=== PATIENT | female | born 1995 | race Caucasian/White ===

== ENCOUNTER 2019-01-09 11:33 | Inpatient (IN) | payer BC, OTHER ==
[~2019-01-09] VITALS: Ht 152.4 cm; Wt 95.8 kg
[2019-01-09] MEDS ORDERED: LACTATED RINGERS 1,000 ML IV ONE (11:43)
[2019-01-09] MEDS ORDERED: IBUPROFEN 800 MG (MOTRIN) TAB PO STA (11:43)
[2019-01-09 11:54] LABS: BASOPHILS % (AUTO) 0 % (0-10); EOSINOPHILS % (AUTO) 0 % (0-10); HEMATOCRIT 31 % (35-52); HEMOGLOBIN 9.8 G/DL (11.5-16.0); LYMPHOCYTES # (AUTO) 1.2 X 10^3 (1.0-4.0); LYMPHOCYTES % (AUTO) 8 % (12-44); MEAN CORPUSCULAR HEMOGLOBIN 24 PG (25-34); MEAN CORPUSCULAR HGB CONC 32 G/DL (32-36); MEAN CORPUSCULAR VOLUME 77 FL (80-99); MONOCYTES # (AUTO) 1.6 X 10^3 (0.0-1.0); MONOCYTES % (AUTO) 10 % (0-12); NEUTROPHILS # (AUTO) 13.7 X 10^3 (1.8-7.8); NEUTROPHILS % (AUTO) 83 % (42-75); PLATELET COUNT 262 10^3/uL (130-400); RED CELL DISTRIBUTION WIDTH 15.5 % (10.0-14.5); WHITE BLOOD COUNT 16.5 10^3/uL (4.3-11.0)
--- NOTE | 2019-01-09 12:00 | ED Integumentary General ---
General Chief Complaint: Skin/Wound Problems Stated Complaint: HIGH FEVER Nursing Triage Note: PT HAS A CSECTION LACERATION AND WHEN SHE WENT TO GEOSCIENCE TECHNICIAN A CHILD AND STOOD UP SHE HAD A GUSH OF FLUID FROM THE INCESION SITE. PT HAS BEEN ON ANTIBIOTICS SINCE WEDNESDAY FOR THE INFECTED INCISION. PT IS FEBRILE AND TACHYCARDIA. PT HAD CSECTION 12/31 History of Present Illness Date Seen by Provider: Jan 09, 2019 Time Seen by Provider: 11:40 Initial Comments 23 year old female delivered her first child on 01/01/19 at [place] via c- section. She had wound issues on 01/06 and was seen at [place] ED, started on Keflex. She took Keflex at 0800, Tylenol 1,000 mg at 0900 and [place]/APAP at 0600 this am. She is on labetalol for hypertension, she did not take that today. She got up from her couch today and noticed a large amount of malodorous fluid from her . She attempted to get in with her OB doctor and could not be seen until tomorrow. She complains of mild nausea, no vomiting. She last ate at 2100 yesterday. She denies any shortness of breath, vision changes, vertigo, or chest pain. She does report right calf pain. No history of DVTs. She is not on aspirin. She arrives via EMS Timing/Duration: this morning Severity: moderate Location: torso (lower abdomen) Possible Cause: no cause identified Associated Symptoms: change in skin texture, malaise, other (drainage incision) Allergies and Home Medications Allergies Coded Allergies: Penicillins (Verified Allergy, Unknown, 01/09/19) acetaminophen (Verified Allergy, Unknown, 01/09/19) butalbital (Verified Allergy, Unknown, 01/09/19) caffeine (Verified Allergy, Unknown, 01/09/19) Home Medications Cephalexin 500 Mg Capsule, 500 MG PO TID, (Reported) PICKED UP A 10 DAY SUPPLY ON 01-07-2019 Hydrocodone/Acetaminophen 1 Each Tablet, 1 TAB PO Q4H PRN for PAIN-MODERATE, (Reported) Labetalol HCl 100 Mg Tablet, 100 MG PO BID, (Reported) Patient Home Medication List Home Medication List Reviewed: Yes Review of Systems Review of Systems Constitutional: no symptoms reported, see HPI Skin: see HPI, change in color (lower abdomen) All Other Systems Reviewed Negative Unless Noted: Yes Past Kscbqyl-Gvmqdw-Pwhigf Hx Past Med/Social Hx: Reviewed Nursing Past Med/Soc Hx Patient Social History Alcohol Use: Denies Use Recreational Drug Use: No Smoking Status: Never a Smoker Recent Foreign Travel: No Contact w/Someone Who Travel: No Recent Infectious Disease Expo: No Recent Hopitalizations: Yes (baby) Physical Abuse: No Sexual Abuse: No Mistreated: No Fear: No Seasonal Allergies Seasonal Allergies: No Past Medical History Surgeries: No Respiratory: No Cardiac: No Neurological: No : No (Delivered 01/01/19) Hx : 1 Hx Para: 1 Genitourinary: No Gastrointestinal: No Musculoskeletal: No Endocrine: No HEENT: No Cancer: No Psychosocial: No Integumentary: No Physical Exam Vital Signs Vital Signs - First Documented 01/09/19 11:44 Temp 102.0 Pulse 122 Resp 18 B/P (MAP) 108/54 (72) Pulse Ox 95 O2 Delivery Room Air Capillary Refill : Less Than 3 Seconds General Appearance: WD/WN, no apparent distress HEENT: PERRL/EOMI, normal ENT inspection, TMs normal, pharynx normal Neck: non-tender, full range of motion, supple, normal inspection Cardiovascular: normal peripheral pulses, regular rate, rhythm, tachycardia, other (pedal pulses 2+ and symmetric) Respiratory: chest non-tender, lungs clear, normal breath sounds Gastrointestinal: normal bowel sounds, non tender, soft, distended (); No guarding, No rebound; tenderness (suprapubic incision site) Extremities: no pedal edema, normal capillary refill, calf tenderness (right, positive Homans sign) Neurologic/Psychiatric: no motor/sensory deficits, alert, normal mood/affect, oriented x 3 Skin: normal color, warm/dry Skin Problem Location: torso (lower abdomen) Skin Problem Character: drainage (purulent, malodorous ), erythema, patchy Lymphatic: no adenopathy Progress/Results/Core Measures Results/Orders Lab Results Laboratory Tests Test 01/09/19 11:40 01/09/19 13:07 Range/Units White Blood Count 16.5 H 4.3-11.0 10^3/uL Red Blood Count 4.05 L 4.35-5.85 10^6/uL Hemoglobin 9.8 L 11.5-16.0 G/DL Hematocrit 31 L 35-52 % Mean Corpuscular Volume 77 L 80-99 FL Mean Corpuscular Hemoglobin 24 L 25-34 PG Mean Corpuscular Hemoglobin Concent 32 32-36 G/DL Red Cell Distribution Width 15.5 H 10.0-14.5 % Platelet Count 262 130-400 10^3/uL Mean Platelet Volume 10.0 7.4-10.4 FL Neutrophils (%) (Auto) 83 H 42-75 % Lymphocytes (%) (Auto) 8 L 12-44 % Monocytes (%) (Auto) 10 0-12 % Eosinophils (%) (Auto) 0 0-10 % Basophils (%) (Auto) 0 0-10 % Neutrophils # (Auto) 13.7 H 1.8-7.8 X 10^3 Lymphocytes # (Auto) 1.2 1.0-4.0 X 10^3 Monocytes # (Auto) 1.6 H 0.0-1.0 X 10^3 Eosinophils # (Auto) 0.0 0.0-0.3 10^3/uL Basophils # (Auto) 0.0 0.0-0.1 10^3/uL Neutrophils % (Manual) 73 % Lymphocytes % (Manual) 10 % Monocytes % (Manual) 8 % Band Neutrophils 9 % Rouleau SLIGHT Prothrombin Time 15.6 H 12.2-14.7 SEC INR Comment 1.2 0.8-1.4 Activated Partial Thromboplast Time 36 H 24-35 SEC Sodium Level 133 L 135-145 MMOL/L Potassium Level 3.7 3.6-5.0 MMOL/L Chloride Level 101 98-107 MMOL/L Carbon Dioxide Level 22 21-32 MMOL/L Anion Gap 10 5-14 MMOL/L Blood Urea Nitrogen 11 7-18 MG/DL Creatinine 0.77 0.60-1.30 MG/DL Estimat Glomerular Filtration Rate > 60 BUN/Creatinine Ratio 14 Glucose Level 100 70-105 MG/DL Lactic Acid Level 1.06 0.50-2.00 MMOL/L Calcium Level 8.8 8.5-10.1 MG/DL Corrected Calcium 9.4 8.5-10.1 MG/DL Total Bilirubin 0.4 0.1-1.0 MG/DL Aspartate Amino Transf (AST/SGOT) 10 5-34 U/L Alanine Aminotransferase (ALT/SGPT) 13 0-55 U/L Alkaline Phosphatase 90 40-136 U/L Total Protein 6.6 6.4-8.2 GM/DL Albumin 3.2 3.2-4.5 GM/DL Urine Color YELLOW Urine Clarity CLEAR Urine pH 5 5-9 Urine Specific [place] 1.010 L 1.016-1.022 Urine Protein 2+ H NEGATIVE Urine Glucose (UA) NEGATIVE NEGATIVE Urine Ketones NEGATIVE NEGATIVE Urine Nitrite NEGATIVE NEGATIVE Urine Bilirubin NEGATIVE NEGATIVE Urine Urobilinogen NORMAL NORMAL MG/DL Urine Leukocyte Esterase 3+ H NEGATIVE Urine RBC (Auto) 5+ H NEGATIVE Urine RBC 2-5 H /HPF Urine WBC 25-50 H /HPF Urine Squamous Epithelial Cells 10-25 H /HPF Urine Crystals NONE /LPF Urine Bacteria MODERATE H /HPF Urine Casts PRESENT /LPF Urine Granular Casts 5-10 H /LPF Urine Mucus NEGATIVE /LPF Urine Culture Indicated CULTURE PENDING My Orders Orders - EDYTA OAKES Cbc With Automated Diff (01/09/19 11:43) Comprehensive Metabolic Panel (01/09/19 11:43) Blood Culture (01/09/19 11:43) Urinalysis (01/09/19 11:43) Urine Culture (01/09/19 11:43) Protime With Inr (01/09/19 11:43) Partial Thromboplastin Time (01/09/19 11:43) Chest 1 View, Ap/Pa Only (01/09/19 11:43) Ed Iv/Invasive Line Start (01/09/19 11:43) Vital Signs Adult Sepsis Patie Q15M (01/09/19 11:43) O2 (01/09/19 11:43) Wound Culture (01/09/19 11:43) Lactated Ringers (Lr 1000 Ml Iv Solution (01/09/19 11:43) Lactic Acid Analyzer (01/09/19 11:43) Ibuprofen Tablet (Motrin Tablet) (01/09/19 11:43) Manual Differential (01/09/19 11:40) Ondansetron Injection (Zofran Injectio (01/09/19 12:15) Ed Iv/Invasive Line Start (01/09/19 12:14) Ns Iv 1000 Ml (Sodium Chloride 0.9%) (01/09/19 12:14) Cefazolin Injection (Ancef Injection) (01/09/19 12:30) Us Venous Lower Ext Rt (01/09/19 12:23) Ed Iv/Invasive Line Start (01/09/19 14:00) Ns Iv 1000 Ml (Sodium Chloride 0.9%) (01/09/19 14:00) Ciprofloxacin Iv 400mg/200ml (Cipro Iv S (01/09/19 14:15) Medications Given in ED Current Medications Medications Dose Ordered Sig/Ajay Route Start Time Stop Time Status Last Admin Dose Admin Cefazolin Sodium 1,000 mg ONCE ONCE IV 01/09/19 12:30 01/09/19 12:31 DC 01/09/19 12:29 1,000 MG Ciprofloxacin/ Dextrose 200 ml @ 200 mls/hr ONCE ONCE IV 01/09/19 14:15 01/09/19 15:14 DC 01/09/19 14:27 200 MLS/HR Lactated Ringer's 1,000 ml @ 0 mls/hr Q0M ONCE IV 01/09/19 11:43 01/09/19 11:48 DC 01/09/19 11:57 0 MLS/HR Ondansetron HCl 4 mg ONCE ONCE IVP 01/09/19 12:15 01/09/19 12:16 DC 01/09/19 12:30 4 MG Vital Signs/I&O 01/09/19 01/09/19 01/09/19 01/09/19 11:44 11:50 11:58 13:09 Temp 102.0 102.0 98.7 Pulse 122 Resp 18 B/P (MAP) 108/54 (72) Pulse Ox 95 99 O2 Delivery Room Air Room Air 01/09/19 01/09/19 13:19 13:20 Temp 98.7 98.7 Pulse 96 96 Resp 18 18 B/P (MAP) 129/56 129/56 (80) Pulse Ox 95 99 O2 Delivery Room Air Room Air Blood Pressure Mean: 72 Progress Progress Note : Time: 11:40 Progress Note Patient seen and evaluated. She has had 400 ML's of normal saline for IV started by EMS. Her fluid replacement is based on pre- weight of 91kg, her weight is 96 kg. Will give a total of 2,700 fluid per IV. Second IV started LR 1L, Wide Open. Sepsis protocol initiated with fluids, Ibuprofen, labs, and cultures. N1 gram IV. Cefazolin 1 g IV after cultures from wound obtained. Zofran 4 mg per IV for nausea. 1230 Patient has received 2 L IVF. B/P stable and pulse 100-112. Patient reports her nausea has improved. 1300 Will start 3 L of NS per IV. 1300 Temp 98.7; HR 94-110; B/P 120s-106/78-60. Spoke with Dr. Nicole recommended irrigating wound and packing with iodoform gauze, then follow up with her OB outpatient in 1-2 days. 1345 UA reviewed, will cover with Cipro 400 mg IV. Maintain NS at 150 ml/hr. [address] Nicole, since patient meets Sepsis criteria on Admission to ED, would feel most comfortable with observation since she failed outpatient antibiotics. Agreed to have hospitalist admit and he will consult. 1430 Dr. Manning here to see patient, B/P 140/85, spoke with Dr. Nicole, will resume metoprolol [address] Nicole here to irrigate wound, increased pain with procedure. Fentanyl 25 mcg IV. Diagnostic Imaging Diagonstic Imaging: Xray Plain Films/CT/US/NM/MRI: chest Comments NAME: TARAN EVANS [facility] REC#: [id number] PT STATUS: REG ER : 1995 PHYSICIAN: EDYTA OAKES ADMIT DATE: 01/09/19/ER Draft Date of Exam:01/09/19 CHEST 1 VIEW, AP/PA ONLY PATIENT HISTORY: Recent surgery. Infection. TECHNIQUE: Single frontal view of the chest. COMPARISON: None. FINDINGS: The lung volumes are normal. No focal consolidation is seen. No large pleural effusion or pneumothorax is seen. The cardiomediastinal silhouette is normal in size and contour. No acute osseous abnormality is seen. IMPRESSION: No acute pulmonary abnormality seen. Dictated on workstation # [id number] Dict: 01/09/19 1225 Trans: 01/09/19 1228 [id number] Interpreted by: GABY TIERNEY MD Electronically signed by: Reviewed: Reviewed by Me Diagonstic Imaging: Ultrasound Plain Films/CT/US/NM/MRI: other (right lower extremity) Comments NAME: TARAN EVANS [facility] REC#: [id number] PT STATUS: REG ER : 1995 PHYSICIAN: EDYTA OAKES ADMIT DATE: 01/09/19/ER Draft Date of Exam:01/09/19 US VENOUS LOWER EXT RT PROCEDURE: US right lower extremity venous. TECHNIQUE: Multiple real-time grayscale images were obtained over the right lower extremity in various projections. Additional spectral analysis and color Doppler duplex images were also obtained. INDICATION: Pain and fever. FINDINGS: The right common femoral, superficial femoral, popliteal veins and tibial veins demonstrate normal response to compression, augmentation, and Valsalva. There are no right lower extremity fluid collections or masses. IMPRESSION: No evidence of deep vein thrombosis in the right lower extremity. Dictated on workstation # [id number] Dict: 01/09/19 1341 Trans: 01/09/19 1345 [id number] Interpreted by: CHRISTIE HDEZ MD Electronically signed by: Reviewed: Reviewed by Me Departure Impression Primary Impression: Sepsis after obstetrical procedure Additional Impression: UTI (urinary tract infection) Qualified Codes: N30.01 - Acute cystitis with hematuria Disposition: ADMITTED INPATIENT Condition: Stable Admissions Decision to Admit Reason: Admit from ER (General) Decision to Admit/Date: Jan 09, 2019 Time/Decision to Admit Time: 14:00 Sepsis Risk Sepsis Risk Clinical Suspicion-Infection: Yes Temperature:98.7 Pulse: 96 Respiratory Rate: 18 Laboratory Tests 01/09/19 11:40: White Blood Count 16.5H Blood Pressure 129 /56 Mean: 80 Laboratory Tests 01/09/19 11:40: Creatinine 0.77, INR Comment 1.2, Platelet Count 262, Total Bilirubin 0.4 EDYTA OAKES Jan 09, 2019 12:00
[2019-01-09 12:04] LABS: INR 1.2 (0.8-1.4); PROTHROMBIN TIME PATIENT 15.6 SEC (12.2-14.7)
[2019-01-09 12:10] LABS: ALANINE AMINOTRANSFERASE 13 U/L (0-55); ALBUMIN 3.2 GM/DL (3.2-4.5); ALKALINE PHOSPHATASE 90 U/L (40-136); BILIRUBIN,TOTAL 0.4 MG/DL (0.1-1.0); BUN/CREATININE RATIO 14; CALCIUM 8.8 MG/DL (8.5-10.1); CARBON DIOXIDE 22 MMOL/L (21-32); CHLORIDE 101 MMOL/L (98-107); CREATININE SERUM 0.77 MG/DL (0.60-1.30); GFR ESTIMATED > 60; GLUCOSE 100 MG/DL (70-105); POTASSIUM 3.7 MMOL/L (3.6-5.0); SODIUM 133 MMOL/L (135-145); TOTAL PROTEIN 6.6 GM/DL (6.4-8.2)
[2019-01-09] MEDS ORDERED: NS IV 1000 ML 1,000 ML IV SCH ×2 (12:14→14:00)
[2019-01-09] MEDS ORDERED: ONDANSETRON 4 MG/2 ML (SDV) Z0FRAN IVP ONE (12:15)
--- NOTE | 2019-01-09 12:28 | Diagnostic Imaging Report ---
PATIENT HISTORY: Recent surgery. Infection. TECHNIQUE: Single frontal view of the chest. COMPARISON: None. FINDINGS: The lung volumes are normal. No focal consolidation is seen. No large pleural effusion or pneumothorax is seen. The cardiomediastinal silhouette is normal in size and contour. No acute osseous abnormality is seen. IMPRESSION: No acute pulmonary abnormality seen. Dictated by: Dictated on workstation # [id number]
[2019-01-09] MEDS ORDERED: ceFAZolin INJECTION 1,000 MG VIAL IV ONE (12:30)
[2019-01-09 12:42] LABS: BAND NEUTROPHILS 9 %; LYMPHOCYTES % (MANUAL) 10 %; MONOCYTES % (MANUAL) 8 %; NEUTROPHILS % (MANUAL) 73 %; ROULEAUX SLIGHT
[2019-01-09 13:13] LABS: BILIRUBIN,URINE NEGATIVE (NEGATIVE); CLARITY,URINE CLEAR; COLOR,URINE YELLOW; GLUCOSE, URINE (UA) NEGATIVE (NEGATIVE); KETONES,URINE NEGATIVE (NEGATIVE); LEUKOCYTE ESTERASE ,URINE 3+ (NEGATIVE); NITRITE,URINE NEGATIVE (NEGATIVE); PH,URINE 5 (5-9); PROTEIN,URINE 2+ (NEGATIVE); UROBILINOGEN,URINE NORMAL (NORMAL)
[2019-01-09 13:20] VITALS: BP 129/56
[2019-01-09 13:23] LABS: BACTERIA,URINE MODERATE /HPF; WBC,URINE 25-50 /HPF
--- NOTE | 2019-01-09 13:46 | Diagnostic Imaging Report ---
PROCEDURE: US right lower extremity venous. TECHNIQUE: Multiple real-time grayscale images were obtained over the right lower extremity in various projections. Additional spectral analysis and color Doppler duplex images were also obtained. INDICATION: Pain and fever. FINDINGS: The right common femoral, superficial femoral, popliteal veins and tibial veins demonstrate normal response to compression, augmentation, and Valsalva. There are no right lower extremity fluid collections or masses. IMPRESSION: No evidence of deep vein thrombosis in the right lower extremity. Dictated by: Dictated on workstation # [id number]
[2019-01-09] MEDS ORDERED: CIPROFLOXACIN IV 400MG/200ML 200 ML IV ONE (14:15)
[2019-01-09] MEDS ORDERED: LABETALOL 200 MG (NORMODYNE) TAB PO ONE (15:15)
[2019-01-09] MEDS ORDERED: fentaNYL INJECTION 100 MCG/2 ML AMP ONE (15:24)
[2019-01-09] MEDS ORDERED: fentaNYL INJECTION 100 MCG/2 ML AMP IVP ONE (15:30)
--- NOTE | 2019-01-09 15:39 | History & Physical-Hospitalist ---
History of Present Illness HPI/Chief Complaint Pt is a 23yoCF who presented to the ER with CC of scar draining fluid and fever. She had a on 01/01 after induction at [place] for severe preeclampsia and failure to progress. She was discharged home and then returned to the ER for evaluation of her wound and started on Keflex and discharged home. Despite this she developed a fever and had worsening drainage from her surgical site prompting her to seek evaluation here. On arrival she was febrile to 102 and tachycardiac with purulent drainage from her incision. Labs revealed a leukocytosis of 16.5 but with no end organ involvement of lactic acidosis. She is being admitted for sepsis after failing outpatient management. Her only complaints are that she has right sided abdominal pain. Source: patient Date Seen 01/09/19 Time Seen by a Provider: 15:39 Attending Physician Ki Manning MD PCP No,Local Physician Referring Physician Date of Admission Jan 09, 2019 at 14:27 Home Medications & Allergies Home Medications Reviewed patient Home Medication Reconciliation performed by pharmacy medication reconciliations central sterile supply technician and/or nursing. Patients Allergies have been reviewed. Allergies Allergies Coded Allergies Penicillins (Verified Allergy, Unknown, 01/09/19) acetaminophen (Verified Allergy, Unknown, 01/09/19) butalbital (Verified Allergy, Unknown, 01/09/19) caffeine (Verified Allergy, Unknown, 01/09/19) Past Gzzamax-Tcykms-Kycozy Hx Past Med/Social Hx: Reviewed Nursing Past Med/Soc Hx Patient Social History Alcohol Use: Denies Use Recreational Drug Use: No Smoking Status: Never a Smoker Recent Foreign Travel: No Contact w/other who traveled: No Recent Hopitalizations: Yes (baby) Recent Infectious Disease Expo: No Seasonal Allergies Seasonal Allergies: No Past Medical History : No (Delivered 01/01/19) Hx : 1 Hx Para: 1 Family History Reviewed Nursing Family Hx No Pertinent Family Hx Review of Systems Constitutional: fever EENTM: no symptoms reported Respiratory: no symptoms reported Cardiovascular: no symptoms reported Gastrointestinal: abdominal pain Genitourinary: no symptoms reported Musculoskeletal: no symptoms reported Skin: no symptoms reported Psychiatric/Neurological: No Symptoms Reported Physical Exam Physical Exam Vital Signs Vital Signs - First Documented 01/09/19 11:44 Temp 102.0 Pulse 122 Resp 18 B/P (MAP) 108/54 (72) Pulse Ox 95 O2 Delivery Room Air Capillary Refill : Less Than 3 Seconds Height, Weight, BMI Height: 5'0" Weight: 213lbs. oz. 96.552217ls; BMI Method:Stated General Appearance: No Apparent Distress, WD/WN Respiratory: Lungs Clear, No Accessory Muscle Use, No Respiratory Distress Cardiovascular: Regular Rate, Rhythm, No Murmur Gastrointestinal: Normal Bowel Sounds, Soft, Other (obese abdomen with erythema spreading caudally from incision site, purlent drainage R>L) Extremity: Normal Capillary Refill, Normal Inspection, No Pedal Edema Neurologic/Psychiatric: Alert, Oriented x3, No Motor/Sensory Deficits, Normal Mood/Affect Skin: Erythema (surrounding c/s incision site) Results Results/Procedures Labs Laboratory Tests 01/09/19 11:40 Patient resulted labs reviewed. Imaging: Reviewed Imaging Report Assessment/Plan Admission Diagnosis Sepsis Admission Status: Inpatient Order (span 2 midnights) Reason for Inpatient Admission: failed outpatient treatment Diagnosis/Problems Diagnosis/Problems (1) Sepsis after obstetrical procedure Status: Acute Assessment & Plan: Endometritis vs UTI as source Failed outpatient management Continue on abx No hypotension, lactic acid normal Await cultures (2) Preeclampsia Assessment & Plan: Severe preeclampsia per history with induction at 36wga Continue Labetalol OB consulted, appreciate recs Qualifiers: Trimester: third trimester Qualified Codes: O14.93 - Unspecified pre- eclampsia, third trimester (3) (infant) Assessment & Plan: Discussed safety of current meds with patient consulted Pt has pump at bedside (4) care following delivery Assessment & Plan: OB consulted, appreciate recs Will request records from [facility] KI Cerda MD Jan 09, 2019 15:39
--- NOTE | 2019-01-09 15:43 | NUR ---
WOUND WASHED OUT WITH HYDROGEN PEROXIDE BY DR. GONZALES. WOUND PACKED BY DR. GONZALES.
[2019-01-09 15:56] VITALS: BP 123/83
--- NOTE | 2019-01-09 16:09 | Progress Note-Standard ---
Standard Progress Note Progress Notes/Assess & Plan Date Seen by a Provider: Jan 09, 2019 Time Seen by a Provider: 15:40 Progress/Assessment & Plan Subjective: Ms. Ryder presented to the Emergency Department with several complaints--Postoperative Day #9 from a Primary Low Transverse (for Preeclampsia), draining incision, abdominal pain and fever. After having labs drawn in the ED, it was noted that she has a leukocytosis. I was consulted secondary to draining incision, fever, POD#9 from a , and Preeclampsia. Objective: Vital signs demonstrated a fever of 102 with a leukocytosis (WBC 16.5) Heart: Increase rate, normal rhythm without appreciable murmur Lungs: Clear to auscultation bilaterally with good respiratory effort Abdomen: Good bowel sounds with significant tenderness. Incision is draining a malodorous green fluid, with erythema extended approximately 6 cm above incision. The incision was explored and cultured. Then, I irrigated the wound cellulitis/wound seroma with approximately 400 ml of Hydrogen Peroxide. Afterwards, I packed her incision with 1/2 inch Iodoform gauze. Sterile gauze and ABD pad placed over the opening of the incision--mainly to trap draining fluid. Assessment: Wound Cellulitis 2. Wound Seroma 3. Sepsis 4. Preeclampsia 5. POD#9 Primary Low Transverse Plan: Wound explored, drained and packed with Iodoform gauze. Antibiotics already ordered by Hospitalist. Labetalol restarted. I will check on Ms. Ryder in the morning. Final Diagnosis Wound Cellulitis 2. Wound Seroma 3. Sepsis 4. Preeclampsia 5. POD#9 Primary Low Transverse Focused Exam Sepsis Stage: Sepsis Possible Source: Genitouriary Lactate Level 01/09/19 11:40: Lactic Acid Level 1.06 Time of Focused Exam: 15:45 Respiratory: Chest Non Tender, Lungs Clear, Normal Breath Sounds Cardiovascular: Tachycardia Skin: normal color, warm/dry CHRISTIE GONZALES DO Jan 09, 2019 16:09
[2019-01-09] MEDS ORDERED: IBUPROFEN 800 MG (MOTRIN) TAB PO PRN (16:15)
[2019-01-09] MEDS ORDERED: ONDANSETRON 4 MG/2 ML (SDV) Z0FRAN IV PRN (16:15)
[2019-01-09] MEDS ORDERED: CEPH-507 PO (16:25)
[2019-01-09] MEDS ORDERED: HYDR-3812 PO (16:25)
[2019-01-09] MEDS ORDERED: LABE100T6 PO (16:25)
--- NOTE | 2019-01-09 16:26 | NUR ---
SPOKE WITH PATIENT (SHE ALSO HAD HER BOTTLES) TO COMPLETE MED REC. STARTED KEFLEX ON 01-07-2019 AND THOUGHT SHE GOT IN ABOUT 6 DOSES BEFORE BEING ADMITTED. NO OTC MEDICATIONS
[2019-01-09 16:34] VITALS: BP 123/83
[2019-01-09 16:56] VITALS: BP 129/56
[2019-01-09] MEDS ORDERED: RT-ALBUTEROL SULF 2.5 MG/3 ML PRE-MIX VIAL INH PRN (17:00)
--- NOTE | 2019-01-09 17:00 | NUR ---
TARAN EVANS admitted to room 417-1, with an admitting diagnosis of infection, on 01/09/19 from AM via cart, accompanied by staff.TARAN EVANS introduced to surroundings, call light, bed controls, phone, TV, temperature control, lights, meal times, smoking policy, visitor policy, side rail policy, bathrooms and showers. Patient Rights given to patient in the handbook. TARAN EVANS verbalizes understanding that [facility] is not responsible for the loss or damage to any personal effects or valuables that are kept in the patients posession during their hospitalization. The following Patient Care Plans were discussed with the pt: Discharge Planning. TARAN EVANS verbalizes understanding of Interdisciplinary Patient Education. Patient and/or family were informed about the Rapid Response Team and its purpose.
[2019-01-09] MEDS: NS IV 1000 ML 1,000 ML IV SCH ×2 (17:39→22:03)
[2019-01-09] MEDS ORDERED: ACETAMINOPHEN 500 MG TAB (TYLENOL) PO PRN (18:00)
--- NOTE | 2019-01-09 18:11 | NUR ---
TO SOCIAL SERVICE: It was reported to this RN by ED RN that when EMS brought pt in, they were very clear that the pt home environment was very poor. Stated that the house was very dirty and that the home was covered with flies. Pt has a 1 week old baby and this RN was concerned for the infants well being at this time. It was suggested to involve social service to help with this matter so this RN consulted social service at this time.
[2019-01-09 19:31] VITALS: BP 99/52
[2019-01-09] MEDS: ceFAZolin 1,000 MG/SWFI 10 ML IV PUSH IV SCH ×2 (20:01)
[2019-01-09] MEDS: CIPROFLOXACIN IV 400MG/200ML 200 ML IV SCH (20:02)
[2019-01-10 00:29] VITALS: BP 121/63
[2019-01-10] MEDS: HYDROcodone/APAP 5 MG/325 MG (LORTAB) TAB PO PRN ×4 (02:17→22:02)
[2019-01-10] MEDS: ceFAZolin 1,000 MG/SWFI 10 ML IV PUSH IV SCH ×6 (03:25→20:13)
[2019-01-10] MEDS: NS IV 1000 ML 1,000 ML IV SCH (03:26)
[2019-01-10 04:00] VITALS: BP 125/84
[2019-01-10 06:15] LABS: BASOPHILS % (AUTO) 0 % (0-10); EOSINOPHILS % (AUTO) 0 % (0-10); HEMATOCRIT 26 % (35-52); HEMOGLOBIN 8.1 G/DL (11.5-16.0); LYMPHOCYTES # (AUTO) 1.1 X 10^3 (1.0-4.0); LYMPHOCYTES % (AUTO) 9 % (12-44); MEAN CORPUSCULAR HEMOGLOBIN 24 PG (25-34); MEAN CORPUSCULAR HGB CONC 31 G/DL (32-36); MEAN CORPUSCULAR VOLUME 78 FL (80-99); MEAN PLATELET VOLUME 9.8 FL (7.4-10.4); MONOCYTES # (AUTO) 0.7 X 10^3 (0.0-1.0); MONOCYTES % (AUTO) 6 % (0-12); NEUTROPHILS # (AUTO) 9.6 X 10^3 (1.8-7.8); NEUTROPHILS % (AUTO) 85 % (42-75); PLATELET COUNT 228 10^3/uL (130-400); RED CELL DISTRIBUTION WIDTH 15.8 % (10.0-14.5); WHITE BLOOD COUNT 11.4 10^3/uL (4.3-11.0)
--- NOTE | 2019-01-10 06:37 | Progress Note-Standard ---
Standard Progress Note Progress Notes/Assess & Plan Date Seen by a Provider: Jan 10, 2019 Time Seen by a Provider: 06:35 Progress/Assessment & Plan Subjective: Ms. Ryder presented to the Emergency Department with several complaints--Postoperative Day #9 from a Primary Low Transverse (for Preeclampsia), draining incision, abdominal pain and fever. After having labs drawn in the ED, it was noted that she has a leukocytosis. I was consulted secondary to draining incision, fever, POD#9 from a , and Preeclampsia. Objective: Vital signs demonstrated a fever of 102 with a leukocytosis (WBC 16.5) Heart: Increase rate, normal rhythm without appreciable murmur Lungs: Clear to auscultation bilaterally with good respiratory effort Abdomen: Good bowel sounds with significant tenderness. Incision is draining a malodorous green fluid, with erythema extended approximately 6 cm above incision. The incision was explored and cultured. Then, I irrigated the wound cellulitis/wound seroma with approximately 400 ml of Hydrogen Peroxide. Afterwards, I packed her incision with 1/2 inch Iodoform gauze. Sterile gauze and ABD pad placed over the opening of the incision--mainly to trap draining fluid. Assessment: Wound Cellulitis 2. Wound Seroma 3. Sepsis 4. Preeclampsia 5. POD#9 Primary Low Transverse Plan: Wound explored, drained and packed with Iodoform gauze. Antibiotics already ordered by Hospitalist. Labetalol restarted. I will check on Ms. Ryder in the morning. Focused Exam Lactate Level 01/09/19 11:40: Lactic Acid Level 1.06 Time of Focused Exam: 15:45 CHRISTIE GONZALES DO Jan 10, 2019 06:37
[2019-01-10 06:44] LABS: ALANINE AMINOTRANSFERASE 10 U/L (0-55); ALBUMIN 2.6 GM/DL (3.2-4.5); ALKALINE PHOSPHATASE 81 U/L (40-136); BILIRUBIN,TOTAL 0.1 MG/DL (0.1-1.0); BUN/CREATININE RATIO 15; CALCIUM 8.7 MG/DL (8.5-10.1); CARBON DIOXIDE 20 MMOL/L (21-32); CHLORIDE 113 MMOL/L (98-107); CREATININE SERUM 0.62 MG/DL (0.60-1.30); GFR ESTIMATED > 60; GLUCOSE 98 MG/DL (70-105); POTASSIUM 3.9 MMOL/L (3.6-5.0); SODIUM 142 MMOL/L (135-145); TOTAL PROTEIN 5.6 GM/DL (6.4-8.2)
--- NOTE | 2019-01-10 06:44 | Progress Note-Standard ---
Standard Progress Note Progress Notes/Assess & Plan Date Seen by a Provider: Jan 10, 2019 Time Seen by a Provider: 06:35 Progress/Assessment & Plan Subjective: Ms. Ryder presented to the Emergency Department with several complaints--Postoperative Day #9 from a Primary Low Transverse (for Preeclampsia), draining incision, abdominal pain and fever. After having labs drawn in the ED, it was noted that she has a leukocytosis. I was consulted secondary to draining incision, fever, POD#9 from a , and Preeclampsia. Objective: Vital signs demonstrated a fever of 102 with a leukocytosis (WBC 16.5) Heart: Increase rate, normal rhythm without appreciable murmur Lungs: Clear to auscultation bilaterally with good respiratory effort Abdomen: Good bowel sounds with significant tenderness. Incision is draining a malodorous green fluid, with erythema extended approximately 6 cm above incision. The incision was explored and cultured. Then, I irrigated the wound cellulitis/wound seroma with approximately 400 ml of Hydrogen Peroxide. Afterwards, I packed her incision with 1/2 inch Iodoform gauze. Sterile gauze and ABD pad placed over the opening of the incision--mainly to trap draining fluid. Assessment: Wound Cellulitis 2. Wound Seroma 3. Sepsis 4. Preeclampsia 5. POD#9 Primary Low Transverse Plan: Wound explored, drained and packed with Iodoform gauze. Antibiotics already ordered by Hospitalist. Labetalol restarted. I will check on Ms. Ryder in the morning. Hospital Day #2 Subjective: Ms. Ryder states that she feels "like crap", but better than yesterday. Abdomen is still sore. Denies any nausea or vomiting. Objective: Afebrile (Temp 99.3) Heart: Regular rate and rhythm without appreciable murmur Lungs: Clear to auscultation bilaterally with good respiratory effort Abdomen: Good bowel sounds. No rebound or guarding, but quite tender surrounding incision. Redness has improved. Incision continues to drain Assessment: Wound Cellulitis 2. Wound Seroma 3. Sepsis 4. Preeclampsia 5. POD#10 Primary Low Transverse Plan: Continue antibiotic therapy. Needs a dressing change in two days, may consider Wound Care consult. Focused Exam Lactate Level 01/09/19 11:40: Lactic Acid Level 1.06 Time of Focused Exam: 15:45 CHRISTIE GONZALES DO Jan 10, 2019 06:44
[2019-01-10 08:00] VITALS: BP 110/73
[2019-01-10] MEDS: CIPROFLOXACIN IV 400MG/200ML 200 ML IV SCH ×2 (08:00→20:14)
--- NOTE | 2019-01-10 08:55 | Progress Note-Hospitalist ---
Subjective HPI/CC On Admission Date Seen by Provider: Jan 10, 2019 Time Seen by Provider: 10:56 Pt is a 23yoCF who presented to the ER with CC of scar draining fluid and fever. She had a on 01/01 after induction at [facility] for severe preeclampsia and failure to progress. She was discharged home and then returned to the ER for evaluation of her wound and started on Keflex and discharged home. Despite this she developed a fever and had worsening drainage from her surgical site prompting her to seek evaluation here. On arrival she was febrile to 102 and tachycardiac with purulent drainage from her incision. Labs revealed a leukocytosis of 16.5 but with no end organ involvement of lactic acidosis. She is being admitted for sepsis after failing outpatient management. Her only complaints are that she has right sided abdominal pain. Subjective/Events-last exam Pt reports feeling better than yesterday but still having drainage from surgical site. Pumping is going well and she has he pump at bedside. Baby nursing well per patient. Focused Exam Lactate Level 01/09/19 11:40: Lactic Acid Level 1.06 Time of Focused Exam: 15:45 Objective Exam Vital Signs Vital Signs Date Time Temp Pulse Resp B/P (MAP) Pulse Ox O2 Delivery O2 Flow Rate FiO2 01/10/19 09:23 Room Air 01/10/19 08:00 96.9 74 18 110/73 (85) 97 01/09/19 16:56 21 Capillary Refill : Less Than 3 Seconds General Appearance: No Apparent Distress, WD/WN Respiratory: Lungs Clear, No Respiratory Distress Cardiovascular: Regular Rate, Rhythm, No Murmur Gastrointestinal: Normal Bowel Sounds, Soft, Other (obese abdomen, erythema still present, ABD pad in place) Neurologic/Psychiatric: Alert, Oriented x3, Normal Mood/Affect Skin: Erythema (surrounding c/s incision site) Results/Procedures Lab Laboratory Tests 01/09/19 11:40 01/10/19 05:55 Patient resulted labs reviewed. Imaging: Reviewed Imaging Report Assessment/Plan Assessment and Plan Assess & Plan/Chief Complaint Sepsis Diagnosis/Problems Diagnosis/Problems (1) Sepsis after obstetrical procedure Status: Acute Assessment & Plan: Endometritis vs UTI as source Failed outpatient management Continue on abx Await cultures Requested records from [facility] for possible cultures done in ER (2) Preeclampsia Assessment & Plan: Severe preeclampsia per history with induction at 36wga Continue Labetalol OB consulted, appreciate recs Qualifiers: Trimester: third trimester Qualified Codes: O14.93 - Unspecified pre- eclampsia, third trimester (3) () Assessment & Plan: Discussed safety of current meds for with patient consulted Pt has pump at bedside Baby nursing well per patient (4) care following delivery Assessment & Plan: OB consulted, appreciate recs Will request records from [facility] Clinical Quality Measures DVT/VTE Risk/Contraindication: Risk Factor Score Per Nursin RFS Level Per Nursing on Admit: 2=Moderate KI ALVARADO MD Jan 10, 2019 08:55
--- NOTE | 2019-01-10 10:43 | NUR ---
ALLERGY REVIEW PER [facility] INTERVENTION (PT HAD TYLENOL IN PAST WITHOUT PROBLEMS PER BHUMI RN [id number] 01-09-19)
--- NOTE | 2019-01-10 14:04 | NUR ---
CM/SS responded to consult for SS. The patient reports that this is her first child and that she has just had the then ended up with infection and at ER here. She stated that her, her , and new baby (Uriel) had been staying in the living room as she was unable to get into their bed due to incision. She stated that things had been a bit disorganized since having the baby and then being hospitalized. She and her are both first time parents. Discussed community programs and patient was accepting of services with [facility]. Referral sent to [facility]. Information for the patient's facesheet was updated and left for registration to update.
[2019-01-10 16:04] VITALS: BP 110/72
[2019-01-10 19:35] VITALS: BP 125/81
[2019-01-11 00:01] VITALS: BP 121/78
[2019-01-11 04:06] VITALS: BP 128/84
[2019-01-11] MEDS: ceFAZolin 1,000 MG/SWFI 10 ML IV PUSH IV SCH ×2 (04:24)
[2019-01-11 06:23] LABS: BASOPHILS % (AUTO) 0 % (0-10); EOSINOPHILS % (AUTO) 0 % (0-10); HEMATOCRIT 26 % (35-52); HEMOGLOBIN 7.9 G/DL (11.5-16.0); LYMPHOCYTES # (AUTO) 1.3 X 10^3 (1.0-4.0); LYMPHOCYTES % (AUTO) 20 % (12-44); MEAN CORPUSCULAR HEMOGLOBIN 24 PG (25-34); MEAN CORPUSCULAR HGB CONC 31 G/DL (32-36); MEAN CORPUSCULAR VOLUME 79 FL (80-99); MEAN PLATELET VOLUME 10.5 FL (7.4-10.4); MONOCYTES # (AUTO) 0.6 X 10^3 (0.0-1.0); MONOCYTES % (AUTO) 9 % (0-12); NEUTROPHILS # (AUTO) 4.3 X 10^3 (1.8-7.8); NEUTROPHILS % (AUTO) 70 % (42-75); PLATELET COUNT 224 10^3/uL (130-400); RED CELL DISTRIBUTION WIDTH 15.7 % (10.0-14.5); WHITE BLOOD COUNT 6.2 10^3/uL (4.3-11.0)
[2019-01-11 06:57] LABS: BUN/CREATININE RATIO 8; CALCIUM 8.7 MG/DL (8.5-10.1); CARBON DIOXIDE 19 MMOL/L (21-32); CHLORIDE 109 MMOL/L (98-107); CREATININE SERUM 0.59 MG/DL (0.60-1.30); GFR ESTIMATED > 60; GLUCOSE 81 MG/DL (70-105); POTASSIUM 3.6 MMOL/L (3.6-5.0); SODIUM 139 MMOL/L (135-145)
[2019-01-11 08:19] VITALS: BP 125/73
[2019-01-11] MEDS: CIPROFLOXACIN IV 400MG/200ML 200 ML IV SCH (08:53)
--- NOTE | 2019-01-11 09:10 | NUR ---
CM/SS discharge planning. Patient is hopeful to discharge this day. Let her know that referral to [facility] had been made and they will contact her on Wednesday for intake to program. Patient did not feel she had any other needs discharging.
--- NOTE | 2019-01-11 10:37 | Discharge Inst-Simple/Standard ---
Discharge Inst-Standard Discharge Medications New, Converted or Re-Newed RX: Transmitted to Pharmacy Patient Instructions/Follow Up Plan of Care/Instructions/FU: Please continue to take your medications as written. Please follow up with your OB in the next 2 days to check on your incision and blood pressure. Activity as Tolerated: Yes Discharge Diet: No Restrictions Return to The Hospital For: Fever, worsening pain, abdominal pain, if you feel you are getting worse. KI ALVARADO MD Jan 11, 2019 10:37
[2019-01-11] MEDS ORDERED: CEFD300C3 PO (10:39)
[2019-01-11 11:42] VITALS: BP 125/73
--- NOTE | 2019-01-11 14:07 | Discharge Summary-Hospitalist ---
Diagnosis/Chief Complaint Date of Admission Jan 09, 2019 at 20:47 Date of Discharge Jan 11, 2019 at 11:52 Discharge Date: Jan 11, 2019 Admission Diagnosis Sepsis Discharge Diagnosis (1) Sepsis after obstetrical procedure Status: Acute Assessment & Plan: Endometritis vs UTI as source Failed outpatient management Continue on abx Await cultures Requested records from [facility] for possible cultures done in ER (2) Preeclampsia Assessment & Plan: Severe preeclampsia per history with induction at 36wga Continue Labetalol OB consulted, appreciate recs (3) () Assessment & Plan: Discussed safety of current meds for with patient consulted Pt has pump at bedside Baby nursing well per patient (4) care following delivery Assessment & Plan: OB consulted, appreciate recs Will request records from [facility] Discharge Summary Procedures/Consulations Dr Nicole- OB Discharge Physical Exam Allergies: Coded Allergies: Penicillins (Verified Allergy, Unknown, 01/09/19) butalbital (Verified Allergy, Unknown, 01/09/19) caffeine (Verified Allergy, Unknown, 01/09/19) Vitals & I&Os Vital Signs Date Time Temp Pulse Resp B/P (MAP) Pulse Ox O2 Delivery O2 Flow Rate FiO2 01/11/19 11:42 78 17 125/73 94 Room Air 0.00 01/11/19 08:19 98.0 01/09/19 16:56 21 General Appearance: No Apparent Distress, WD/WN Cardiovascular: Regular Rate, Rhythm, No Murmur Gastrointestinal: Normal Bowel Sounds, Non Tender, Soft Neurologic/Psychiatric: Alert, Oriented x3 Hospital Course Pt was admitted for sepsis due to cellulitis surrounding surgical site after failing outpatient management. She was 1 week post op from a primary on presentation and had had 3 days of keflex. She was admitted for IV abx and cu ltures. Wound culture revealed staph and strep and she improved with Ancef and Cipro. She was discharged home with omnicef to complete course along with probiotic. She has a follow up with her OB on 01/13 at 8am. Of note she was on labetalol for severe preeclampsia but BP was normal throughout the admission without this. She is to continue daily BP checks at home until she sees her OB. Labs (last 24 hrs) Laboratory Tests 01/11/19 05:37: White Blood Count 6.2, Red Blood Count 3.26L, Hemoglobin 7.9L, Hematocrit 26L, Mean Corpuscular Volume 79L, Mean Corpuscular Hemoglobin 24L, Mean Corpuscular Hemoglobin Concent 31L, Red Cell Distribution Width 15.7H, Platelet Count 224, Mean Platelet Volume 10.5H, Neutrophils (%) (Auto) 70, Lymphocytes (%) (Auto) 20, Monocytes (%) (Auto) 9, Eosinophils (%) (Auto) 0, Basophils (%) (Auto) 0, Neutrophils # (Auto) 4.3, Lymphocytes # (Auto) 1.3, Monocytes # (Auto) 0.6, Eosinophils # (Auto) 0.0, Basophils # (Auto) 0.0, Sodium Level 139, Potassium Level 3.6, Chloride Level 109H, Carbon Dioxide Level 19L, Anion Gap 11, Blood Urea Nitrogen 5L, Creatinine 0.59L, Estimat Glomerular Filtration Rate > 60, BUN/Creatinine Ratio 8, Glucose Level 81, Calcium Level 8.7 Microbiology 01/09/19 Blood Culture - Preliminary, Resulted No growth 01/09/19 Urine Culture - Final, Complete 3 or more isolates 01/09/19 Gram Stain - Final, Resulted 01/09/19 Wound Culture - Preliminary, Resulted Staphylococcus epidermidis Streptococcus mitis group Patient resulted labs reviewed. Imaging: Reviewed Imaging Report Discussion & Recommendations Discharge Planning: >30 minutes discharge planning Discharge Home Medications: Active Scripts Active Cefdinir 300 Mg Capsule 300 Mg PO BID Reported Hydrocodone-Acetamin 5-325 mg (Hydrocodone/Acetaminophen) 1 Each Tablet 1 Tab PO Q4H PRN Instructions to patient/family Please see electronic discharge instructions given to patient. Clinical Quality Measures DVT/VTE Risk/Contraindication: Risk Factor Score Per Nursin RFS Level Per Nursing on Admit: 2=Moderate Problem Qualifiers (1) Preeclampsia: Trimester: third trimester Qualified Codes: O14.93 - Unspecified pre- eclampsia, third trimester KI ALVARADO MD Jan 11, 2019 14:07
== END 2019-01-11 11:52 | disposition home or self-care (01) | DRG 769 ==
LOC: ER 11:35 → UNDOADMOB 14:27 → 4TH 14:27 → INTOOBSV 20:47 → OBSVTOIN 20:47 → UNDODISIN 01-11 11:52
PROVIDERS: ADMIT Family Medicine; ATTEND Family Medicine
PROC: 0J980ZZ Drainage of Abdomen Subcutaneous Tissue and Fascia, Open Approach (ICD-10-PCS; principal; 2019-01-09)
DX: O86.04 Sepsis following an obstetrical procedure (principal); A41.1 Sepsis due to other specified staphylococcus; A40.8 Other streptococcal sepsis; O86.01 Infection of obstetric surgical wound, superficial incisional site; O86.20 Urinary tract infection following delivery, unspecified; O90.89 Other complications of the puerperium, not elsewhere classified; N99.842 Postprocedural seroma of a genitourinary system organ or structure following a genitourinary system procedure; O14.15 Severe pre-eclampsia, complicating the puerperium
CPT/HCPCS: 10061; 36415; 71045; 80048; 80053; 81000; 83605; 85007; 85025; 85027; 85610; 85730; 87040; 87070; 87077; 87088; 87205

== ENCOUNTER 2021-12-22 06:53 | Emergency (ER) | payer BC, OTHER ==
[~2021-12-22] VITALS: Ht 152 cm; Wt 97.0 kg
[~2021-12-22 06:53] MED LIST: ACHD5005 PO; CEFD300C3 PO; CEPH-507 PO; LABE100T6 PO
[2021-12-22] MEDS ORDERED: NS IV 1000 ML 1,000 ML IV SCH (07:30)
[2021-12-22] MEDS ORDERED: fentaNYL INJ 100 MCG/2 ML AMP IVP ONE (07:30)
[2021-12-22] MEDS ORDERED: ONDANSETRON 4 MG/2 ML (SDV) Z0FRAN IVP ONE (07:30)
--- NOTE | 2021-12-22 07:30 | ED Abdominal Pain ---
General Chief Complaint: Abdominal/GI Problems Stated Complaint: RT LOWER ABD PAIN,BURNING Nursing Triage Note: pt states rt side pain that started yesterday. has an iud so occational cramps but no regular period, feels worse than her usual cramps. emergency c section 6 months ago. has not ate since about 1700 last night. Source of Information: Patient Exam Limitations: No Limitations History of Present Illness Date Seen by Provider: Dec 22, 2021 Time Seen by Provider: 07:17 Initial Comments Patient is a 26-year-old female who presents to the emergency department today with a chief complaint of right-sided abdominal pain. She states she had discomfort when she woke up yesterday morning. It persisted throughout the day and into the evening and all night last night. She took an naproxen around 2 AM which did not alleviate her pain. She also complains of nausea and cold chills/sweats. Last oral intake was 5 PM yesterday. She has not had anything to eat since that time. She has only had an emergency about 6 months ago. No other abdominal surgeries. Her last menstrual cycle was 6 months ago, she had an IUD placed at that time. She denies dysuria urgency or frequency, abnormal vaginal discharge. No black or bloody stools but she has had a little diarrhea yesterday. Stretching out makes her feel a little bit better, "scrunching up" makes her feel a little worse. No chronic daily illnesses that she takes medications for. Non-smoker nondrinker. All other review of systems reviewed and negative except as stated. Timing/Duration: 24 Hours Severity/Quality: Moderate, Aching Location: RUQ, RLQ Radiation: Groin Activities at Onset: None Modifying Factors: Improves With Lying down; Worsens With Movement, Worsens With Palpation Associated Symptoms: Nausea/Vomiting Allergies and Home Medications Allergies Coded Allergies: Penicillins (Verified Allergy, Unknown, 01/09/19) butalbital (Verified Allergy, Unknown, 01/09/19) caffeine (Verified Allergy, Unknown, 01/09/19) Patient Home Medication List Home Medication List Reviewed: Yes Cefdinir (Cefdinir) 300 Mg Capsule, 300 MG PO BID Prescribed by: KI ALVARADO on 01/11/19 1039 Hydrocodone Bit/Acetaminophen (Lortab 5 Mg Tablet) 1 Each Tablet, 1 TAB PO Q4H PRN for PAIN-MODERATE, (Reported) Entered as Reported by: ARNIE BAILEY on 01/09/19 1451 Review of Systems Review of Systems Constitutional: see HPI EENTM: No Symptoms Reported Respiratory: No Symptoms Reported Cardiovascular: No Symptoms Reported Gastrointestinal: Abdominal Pain, Nausea Genitourinary: No Symptoms Reported Musculoskeletal: no symptoms reported Skin: no symptoms reported Psychiatric/Neurological: No Symptoms Reported All Other Systems Reviewed Negative Unless Noted: Yes Past Lkwrwyi-Dewvgw-Gzfujj Hx Patient Social History Tobacco Use?: No Substance use?: No Alcohol Use?: No Immunizations Up To Date Influenza Vaccine Up-to-Date: Yes; Up-to-Date First/Initial COVID19 Vaccinat: 05/2021 Second COVID19 Vaccination Kalpesh: 06/2021 COVID19 Vaccine Cyber In[employer]: [employer] Seasonal Allergies Seasonal Allergies: No Past Medical History Surgery/Hospitalization HX: 2 c sections, t&a, cyst removed, iud Surgeries: No Respiratory: No Cardiac: No Neurological: No Genitourinary: No Gastrointestinal: No Musculoskeletal: No Endocrine: No HEENT: No Cancer: No Psychosocial: No Integumentary: No Family Medical History No Pertinent Family Hx Physical Exam Vital Signs Vital Signs - First Documented 12/22/21 07:09 Temp 36.2 Pulse 62 Resp 20 B/P (MAP) 131/77 (95) O2 Delivery Room Air Capillary Refill : Less Than 3 Seconds Height/Weight/BMI Height: 5'0.00" Weight: 211lbs. 2.0oz. 95.294469hk; 41.00 BMI Method:Stated General Appearance: WD/WN, no apparent distress HEENT: PERRL/EOMI Neck: normal inspection Respiratory: lungs clear, normal breath sounds, no respiratory distress, no accessory muscle use Cardiovascular: regular rate, rhythm Gastrointestinal: soft, abnormal bowel sounds (hypoactive), guarding, rebound, tenderness Extremities: normal range of motion, non-tender, normal inspection, no pedal edema Neurologic/Psychiatric: alert, normal mood/affect, oriented x 3 Skin: normal color, warm/dry Progress/Results/Core Measures Results/Orders Lab Results Laboratory Tests Test 12/22/21 07:10 12/22/21 07:30 Range/Units Urine Color YELLOW Urine Clarity CLEAR Urine pH 6.0 5-9 Urine Specific [place] >=1.030 1.016-1.022 Urine Protein NEGATIVE NEGATIVE Urine Glucose (UA) NEGATIVE NEGATIVE Urine Ketones NEGATIVE NEGATIVE Urine Nitrite NEGATIVE NEGATIVE Urine Bilirubin NEGATIVE NEGATIVE Urine Urobilinogen 0.2 < = 1.0 MG/DL Urine Leukocyte Esterase NEGATIVE NEGATIVE Urine RBC (Auto) NEGATIVE NEGATIVE Urine Test NEGATIVE NEGATIVE White Blood Count 7.1 4.3-11.0 10^3/uL Red Blood Count 5.40 H 3.80-5.11 10^6/uL Hemoglobin 13.3 11.5-16.0 g/dL Hematocrit 42 35-52 % Mean Corpuscular Volume 77 L 80-99 fL Mean Corpuscular Hemoglobin 25 25-34 pg Mean Corpuscular Hemoglobin Concent 32 32-36 g/dL Red Cell Distribution Width 14.4 10.0-14.5 % Platelet Count 270 130-400 10^3/uL Mean Platelet Volume 9.7 9.0-12.2 fL Immature Granulocyte % (Auto) 0 % Neutrophils (%) (Auto) 56 42-75 % Lymphocytes (%) (Auto) 35 12-44 % Monocytes (%) (Auto) 7 0-12 % Eosinophils (%) (Auto) 1 0-10 % Basophils (%) (Auto) 0 0-10 % Neutrophils # (Auto) 4.0 1.8-7.8 10^3/uL Lymphocytes # (Auto) 2.5 1.0-4.0 10^3/uL Monocytes # (Auto) 0.5 0.0-1.0 10^3/uL Eosinophils # (Auto) 0.1 0.0-0.3 10^3/uL Basophils # (Auto) 0.0 0.0-0.1 10^3/uL Immature Granulocyte # (Auto) 0.0 0.0-0.1 10^3/uL Sodium Level 138 135-145 MMOL/L Potassium Level 3.9 3.6-5.0 MMOL/L Chloride Level 102 98-107 MMOL/L Carbon Dioxide Level 24 21-32 MMOL/L Anion Gap 12 5-14 MMOL/L Blood Urea Nitrogen 10 7-18 MG/DL Creatinine 0.72 0.60-1.30 MG/DL Estimat Glomerular Filtration Rate 117 BUN/Creatinine Ratio 14 Glucose Level 103 70-105 MG/DL Calcium Level 9.7 8.5-10.1 MG/DL Corrected Calcium 8.5-10.1 MG/DL Total Bilirubin 0.4 0.1-1.0 MG/DL Aspartate Amino Transf (AST/SGOT) 18 5-34 U/L Alanine Aminotransferase (ALT/SGPT) 22 0-55 U/L Alkaline Phosphatase 71 40-136 U/L Total Protein 7.9 6.4-8.2 GM/DL Albumin 4.6 H 3.2-4.5 GM/DL My Orders Orders - FAVIO MORLEY MD Ed Iv/Invasive Line Start (12/22/21 07:26) Cbc With Automated Diff (12/22/21 07:26) Comprehensive Metabolic Panel (12/22/21 07:26) Hcg,Qualitative Urine (12/22/21 07:26) Urinalysis Dipstick Only (12/22/21 07:26) Ct Abd/Pelv W (Appendicitis) (12/22/21 07:26) Fentanyl Inj (Sublimaze Injection) (12/22/21 07:30) Ondansetron Injection (Zofran Injectio (12/22/21 07:30) Ns Iv 1000 Ml (Sodium Chloride 0.9%) (12/22/21 07:30) Iohexol Injection (Omnipaque 350 Mg/Ml 1 (12/22/21 08:00) Received Contrast (Hold Metformin- Contr (12/22/21 08:00) Sodium Chloride Flush (Catheter Flush Sy (12/22/21 08:00) Ns (Ivpb) (Sodium Chloride 0.9% Ivpb Bag (12/22/21 08:00) Ketorolac Injection (Toradol Injection) (12/22/21 08:45) Us Non Ob Pelvis Comp/Transvag (12/22/21 08:36) Medications Given in ED Current Medications Medications Dose Ordered Sig/Ajay Route Start Time Stop Time Status Last Admin Dose Admin Fentanyl Citrate 50 mcg ONCE ONCE IVP 12/22/21 07:30 12/22/21 07:31 DC 12/22/21 07:38 50 MCG Iohexol 100 ml ONCE ONCE IV 12/22/21 08:00 12/22/21 08:01 DC 12/22/21 08:09 100 ML Ketorolac Tromethamine 15 mg ONCE ONCE IVP 12/22/21 08:45 12/22/21 08:46 DC 12/22/21 08:43 15 MG Ondansetron HCl 8 mg ONCE ONCE IVP 12/22/21 07:30 12/22/21 07:31 DC 12/22/21 07:38 8 MG Sodium Chloride 10 ml NEEDED PRN IV 12/22/21 08:00 12/22/21 08:09 10 ML Sodium Chloride 100 ml ONCE ONCE IV 12/22/21 08:00 12/22/21 08:01 DC 12/22/21 08:09 80 ML Vital Signs/I&O 12/22/21 12/22/21 12/22/21 07:09 07:38 08:43 Temp 36.2 36.2 36.2 Pulse 62 Resp 20 B/P (MAP) 131/77 (95) O2 Delivery Room Air Blood Pressure Mean: 95 Progress Progress Note : Time: 10:34 Progress Note Patient is comfortable after Toradol. Pain is more controlled. I advised her that I spoke with Dr. SHULTZ regarding her CT and ultrasound. He suspects that her pain is likely from the sudden growth of the right 3 cm hemorrhagic corpus luteal cyst. He states that the malpositioned IUD can be followed up with her primary care doctor. He recommended home with some prescribed Percocet as well as naproxen, if increasing pain or other emergent concerns that she may require laparoscopic cyst removal. I discussed this with the patient, she is comfortable with plan of care. All questions are sought and answered. Diagnostic Imaging Diagonstic Imaging: Ultrasound Comments [facility], [place] NAME: TARAN CARY [facility] REC#: [id number] PT STATUS: REG ER : 1995 PHYSICIAN: FAVIO MORLEY MD ADMIT DATE: 12/22/21/ER Signed Date of Exam:12/22/21 US NON OB PELVIS COMP/TRANSVAG PROCEDURE: US Non-ob pelvis comp/trans. TECHNIQUE: Multiple realtime grayscale images were obtained of the pelvis in various projections endovaginally. Transabdominal imaging was also performed. INDICATION: Right-sided pelvic pain. COMPARISON: CT abdomen and pelvis performed earlier the same date. FINDINGS: Transabdominal: The uterus and adnexa have a unremarkable transabdominal appearance. Transvaginal images were obtained for additional characterization. Transvaginal: The uterus is anteverted and measures 7.8 x 4.2 cm. The endometrial stripe measures 0.8 cm. An IUD is visualized which appears to extend into the lower uterine segment and may be partially within the cervix. The right ovary is well visualized measuring 4.0 x 3.2 x 3.7 cm and demonstrating normal color Doppler flow. Likely hemorrhagic cyst is seen within the right ovary measuring 3.0 x 2.6 x 2.8 cm. The left ovary is well-visualized measuring 2.5 x 1.8 x 2.5 cm with normal color Doppler flow. No adnexal masses. A small amount of free fluid is seen in the pelvis. IMPRESSION: 1. Likely hemorrhagic cyst within the right ovary with small amount of free fluid in the pelvis. No evidence of torsion. 2. Low position of the IUD with possible extension into the cervix. Recommend correlation with physical exam and possible repositioning/replacement. Dictated by: Dictated on workstation # [id number] Dict: 12/22/21 1000 Trans: 12/22/21 1011 [facility] [id number] Interpreted by: CADY CAMPBELL DO Electronically signed by: CADY CAMPBELL DO 12/22/21 1011 Diagonstic Imaging: CT Comments [facility], [place] NAME: TARAN CARY [facility] REC#: [id number] PT STATUS: REG ER : 1995 PHYSICIAN: FAVIO MORLEY MD ADMIT DATE: 12/22/21/ER Draft Date of Exam:12/22/21 CT ABD/PELV W (APPENDICITIS) PROCEDURE: CT abdomen and pelvis with contrast, rule out appendicitis. TECHNIQUE: Multiple contiguous axial images were obtained through the abdomen and pelvis after the administration of intravenous contrast. All CT scans use one or more of the following dose optimizing techniques: automated exposure control, MA and/or KvP adjustment based on patient size and exam type or iterative reconstruction. INDICATION: Right-sided abdominal pain. No prior studies are available for comparison. Lung bases are clear. No discrete liver mass is detected. Gallbladder is unremarkable. No biliary duct dilatation is seen. Pancreas and spleen are unremarkable. No adrenal mass is identified. Kidneys are unremarkable. Aorta is nonaneurysmal. The bowel loops are normal caliber. There is no obstruction. The appendix is well visualized in the right lower quadrant and appears unremarkable. No definite CT evidence of acute appendicitis is identified. There is no free fluid or fluid collection. There is a cystic lesion in the right adnexa measuring approximately 3.1 cm. An IUD is seen within the uterus. IUD might be somewhat low in position in the lower uterine segment. The right-sided arm of the IUD does appear to extend through the myometrium, could potentially extend out the serosal surface. Bladder is decompressed. No other abnormalities are seen. IMPRESSION: 1. No CT evidence of acute appendicitis. 2. 3.1 cm right ovarian cyst. 3. The IUD appears to be malpositioned. IUD is low in position as well as appears to extend into the right-sided myometrium. The possibility of uterine perforation cannot be entirely excluded on these images. Pelvic sonography may be useful for further evaluation. Dictated on workstation # [id number] Dict: 12/22/21 0816 Trans: 12/22/21 08 [facility] [id number] Interpreted by: ROSALINDA MIN MD Electronically signed by: Departure Communication (Admissions) Time/Spoke to Consulting Phy: 10:[address] Shultz Impression Primary Impression: Pelvic pain Additional Impressions: Hemorrhagic cyst of right ovary IUD migration Qualified Codes: T83.32XA - Displacement of intrauterine contraceptive device, initial encounter Disposition: 01 HOME, SELF-CARE Condition: Improved Departure-Patient Inst. Decision time for Depature: 10:28 Referrals: NO,LOCAL PHYSICIAN (PCP/Family) Primary Care Physician Patient Instructions: Ovarian Cyst ED Add. Discharge Instructions: Continue to take your naproxen twice a day for the next 5 days with food as needed for pain. I have also written a prescription for Percocet for the next 2 to 3 days. Take this only as needed for more severe pain. If the pain becomes more intense or you develop fever or abnormal vaginal discharge, nausea vomiting please come back to the emergency department for reevaluation. Please follow-up with Dr. Villanueva regarding the abnormal positioning of your IUD. Scripts Oxycodone HCl/Acetaminophen (Oxycodone-Acetaminophen 5-325) 5 Mg-325 Mg Tablet 1 EACH PO Q6H PRN for PAIN-MODERATE MDD 6, #10 TAB 0 Refills Prov: FAVIO MORLEY MD 12/22/21 FAVIO MORLEY MD Dec 22, 2021 07:30
[2021-12-22 07:38] LABS: BASOPHILS % (AUTO) 0 % (0-10); EOSINOPHILS # (AUTO) 0.1 10^3/uL (0.0-0.3); EOSINOPHILS % (AUTO) 1 % (0-10); HEMATOCRIT 42 % (35-52); HEMOGLOBIN 13.3 g/dL (11.5-16.0); LYMPHOCYTES # (AUTO) 2.5 10^3/uL (1.0-4.0); LYMPHOCYTES % (AUTO) 35 % (12-44); MEAN CORPUSCULAR HEMOGLOBIN 25 pg (25-34); MEAN CORPUSCULAR HGB CONC 32 g/dL (32-36); MEAN CORPUSCULAR VOLUME 77 fL (80-99); MEAN PLATELET VOLUME 9.7 fL (9.0-12.2); MONOCYTES # (AUTO) 0.5 10^3/uL (0.0-1.0); MONOCYTES % (AUTO) 7 % (0-12); NEUTROPHILS % (AUTO) 56 % (42-75); PLATELET COUNT 270 10^3/uL (130-400); WHITE BLOOD COUNT 7.1 10^3/uL (4.3-11.0)
[2021-12-22 07:45] LABS: BILIRUBIN,URINE NEGATIVE (NEGATIVE); CLARITY,URINE CLEAR; COLOR,URINE YELLOW; GLUCOSE, URINE (UA) NEGATIVE (NEGATIVE); KETONES,URINE NEGATIVE (NEGATIVE); LEUKOCYTE ESTERASE ,URINE NEGATIVE (NEGATIVE); NITRITE,URINE NEGATIVE (NEGATIVE); PROTEIN,URINE NEGATIVE (NEGATIVE)
[2021-12-22 07:49] LABS: ALBUMIN 4.6 GM/DL (3.2-4.5); CHLORIDE 102 MMOL/L (98-107); POTASSIUM 3.9 MMOL/L (3.6-5.0); SODIUM 138 MMOL/L (135-145)
[2021-12-22 07:50] LABS: CALCIUM 9.7 MG/DL (8.5-10.1)
[2021-12-22 07:51] LABS: GLUCOSE 103 MG/DL (70-105)
[2021-12-22 07:52] LABS: TOTAL PROTEIN 7.9 GM/DL (6.4-8.2)
[2021-12-22 07:53] LABS: BILIRUBIN,TOTAL 0.4 MG/DL (0.1-1.0); CARBON DIOXIDE 24 MMOL/L (21-32)
[2021-12-22 07:55] LABS: ALKALINE PHOSPHATASE 71 U/L (40-136); CREATININE SERUM 0.72 MG/DL (0.60-1.30); GFR ESTIMATED 117
[2021-12-22 07:56] LABS: BUN/CREATININE RATIO 14
[2021-12-22 07:56] LABS: HCG,QUALITATIVE URINE NEGATIVE (NEGATIVE)
[2021-12-22 07:58] LABS: ALANINE AMINOTRANSFERASE 22 U/L (0-55)
[2021-12-22] MEDS ORDERED: CATHETER FLUSH 10 ML SYR IV PRN (08:00)
[2021-12-22] MEDS ORDERED: HOLD METFORMIN - RECEIVED CONTRAST 20 ML VIAL IV SCH (08:00)
[2021-12-22] MEDS ORDERED: NS 100 ML (IVPB) BAG IV ONE (08:00)
[2021-12-22] MEDS ORDERED: IOHEXOL 350 MG/ML 100 ML (OMNIPAQUE 350) VIAL IV ONE (08:00)
--- NOTE | 2021-12-22 08:22 | Diagnostic Imaging Report ---
PROCEDURE: CT abdomen and pelvis with contrast, rule out appendicitis. TECHNIQUE: Multiple contiguous axial images were obtained through the abdomen and pelvis after the administration of intravenous contrast. All CT scans use one or more of the following dose optimizing techniques: automated exposure control, MA and/or KvP adjustment based on patient size and exam type or iterative reconstruction. INDICATION: Right-sided abdominal pain. No prior studies are available for comparison. Lung bases are clear. No discrete liver mass is detected. Gallbladder is unremarkable. No biliary duct dilatation is seen. Pancreas and spleen are unremarkable. No adrenal mass is identified. Kidneys are unremarkable. Aorta is nonaneurysmal. The bowel loops are normal caliber. There is no obstruction. The appendix is well visualized in the right lower quadrant and appears unremarkable. No definite CT evidence of acute appendicitis is identified. There is no free fluid or fluid collection. There is a cystic lesion in the right adnexa measuring approximately 3.1 cm. An IUD is seen within the uterus. IUD might be somewhat low in position in the lower uterine segment. The right-sided arm of the IUD does appear to extend through the myometrium, could potentially extend out the serosal surface. Bladder is decompressed. No other abnormalities are seen. IMPRESSION: 1. No CT evidence of acute appendicitis. 2. 3.1 cm right ovarian cyst. 3. The IUD appears to be malpositioned. IUD is low in position as well as appears to extend into the right-sided myometrium. The possibility of uterine perforation cannot be entirely excluded on these images. Pelvic sonography may be useful for further evaluation. Dictated by: Dictated on workstation # [id number]
[2021-12-22] MEDS ORDERED: KETOROLAC 30 MG/ML VIAL IVP ONE (08:45)
--- NOTE | 2021-12-22 10:05 | Diagnostic Imaging Report ---
PROCEDURE: US Non-ob pelvis comp/trans. TECHNIQUE: Multiple realtime grayscale images were obtained of the pelvis in various projections endovaginally. Transabdominal imaging was also performed. INDICATION: Right-sided pelvic pain. COMPARISON: CT abdomen and pelvis performed earlier the same date. FINDINGS: Transabdominal: The uterus and adnexa have a unremarkable transabdominal appearance. Transvaginal images were obtained for additional characterization. Transvaginal: The uterus is anteverted and measures 7.8 x 4.2 cm. The endometrial stripe measures 0.8 cm. An IUD is visualized which appears to extend into the lower uterine segment and may be partially within the cervix. The right ovary is well visualized measuring 4.0 x 3.2 x 3.7 cm and demonstrating normal color Doppler flow. Likely hemorrhagic cyst is seen within the right ovary measuring 3.0 x 2.6 x 2.8 cm. The left ovary is well-visualized measuring 2.5 x 1.8 x 2.5 cm with normal color Doppler flow. No adnexal masses. A small amount of free fluid is seen in the pelvis. IMPRESSION: 1. Likely hemorrhagic cyst within the right ovary with small amount of free fluid in the pelvis. No evidence of torsion. 2. Low position of the IUD with possible extension into the cervix. Recommend correlation with physical exam and possible repositioning/replacement. Dictated by: Dictated on workstation # [id number]
[2021-12-22] MEDS ORDERED: OXYC1TAB11 PO (10:36)
[2021-12-22 10:42] VITALS: BP 131/77
== END 2021-12-22 10:42 | disposition home or self-care (01) ==
LOC: EDUNIT# 06:53 → ER 06:57
DX: T83.32XA Displacement of intrauterine contraceptive device, initial encounter (principal); N83.201 Unspecified ovarian cyst, right side; Z32.02 Encounter for pregnancy test, result negative
CPT/HCPCS: 36415; 74177; 76830; 76856; 80053; 81002; 84703; 85025